=== PATIENT | female | born 2000 ===

== ENCOUNTER 2019-08-01 21:22 | Emergency (ER) | payer OTHER ==
[2019-08-01 21:38] VITALS: BP 129/73
--- NOTE | 2019-08-01 21:57 | ED ---
Laceration/Wound HPI - HPI Summary HPI Summary: 19 yo BF presents status post cutting her the pad over right middle finger with a broken spell while eating ice cream less than hr ago. Patient immediately place some arnica cream on and came to urgent care. There is no bleeding or discharge noted at this time, no sensorimotor deficits noted. - History of Current Complaint Stated Complaint: FINGER LAC Time Seen by Provider: 08/01/19 21:43 Hx Obtained From: Patient Hx Last Menstrual Period: 07/08/19 Onset/Duration: Sudden Onset Aggravating: Nothing Alleviating: Nothing Onset Severity: Mild Current Severity: Mild Pain Intensity: 2 - Allergy/Home Medications Allergies/Adverse Reactions: Allergies Allergy/AdvReac Type Severity Reaction Status Date / Time lactose Allergy GI Upset Verified 08/01/19 21:38 Home Medications: Home Medications Multivitamin [Once Daily] 1 each PO DAILY 08/01/19 [History Confirmed 08/01/19] PMH/Surg Hx/FS Hx/Imm Hx Previously Healthy: Yes Endocrine/Hematology History: Denies: Hx Diabetes Cardiovascular History: Denies: Hx Pacemaker/ICD History: Denies: Hx Renal Disease Sensory History: Denies: Hx Hearing Aid Psychiatric History: Denies: Hx Panic Disorder - Surgical History Surgery Procedure, Year, and Place: TONSILS Infectious Disease History: No Infectious Disease History: Denies: Traveled Outside the [place] in Last 30 Days - Social History Alcohol Use: None Substance Use Type: Reports: None Smoking Status (MU): Never Smoked Tobacco Review of Systems Constitutional: Negative Eyes: Negative ENT: Negative Cardiovascular: Negative Respiratory: Negative Gastrointestinal: Negative Musculoskeletal: Negative Skin: Other - right middle finger pad laceration Neurological/Mental Status: Negative All Other Systems Reviewed And Are Negative: Yes Physical Exam - Summary Physical Exam Summary: Vital Signs Reviewed: Yes Eye Exam: Normal Eyes: Positive: Conjunctiva Clear ENT: Positive: Normal ENT inspection Neck: Positive: Supple Respiratory: Positive: Lungs clear, Normal breath sounds. Negative: Crackles, Rhonchi, Stridor, Wheezing Cardiovascular Exam: Normal, RRR, S1, S2 Abdomen: NT/ND Musculoskeletal Exam: Neurological Exam: Normal Psychological Exam: Normal Skin Exam: closed 0.5cm V shaped superficial laceration in pad of right Distal phalanx, CSM and ROM intact Triage Information Reviewed: Yes Vital Signs On Initial Exam: Initial Vitals Temp Pulse Resp BP Pulse Ox 36.6 C 69 16 129/73 100 08/01/19 21:34 08/01/19 21:34 08/01/19 21:34 08/01/19 21:34 08/01/19 21:34 Vital Signs Reviewed: Yes Procedures - Laceration/Wound Repair 1 Location: upper extremity Description: Linear Betadine Prep?: No Laceration/Wound Explored: clean Closure: Skin Adhesive Debridement: minimal Layer Closure?: No Sterile Dressing Applied?: No Diagnostics - Vital Signs Vital Signs Temp Pulse Resp BP Pulse Ox 08/01/19 21:34 36.6 C 69 16 129/73 100 - Laboratory Lab Statement: Any lab studies that have been ordered have been reviewed, and results considered in the medical decision making process. Laceration Repair Course/Dx - Clinical Impression Provider Diagnoses: Finger laceration Discharge ED - Sign-Out/Discharge Documenting (check all that apply): Patient Departure All imaging exams completed and their final reports reviewed: No Studies - Discharge Plan Condition: Stable Disposition: HOME Patient Education Materials: Skin Adhesive Care (ED) Referrals: Emily Tobar NP [Primary Care Provider] - - Billing Disposition and Condition Condition: STABLE Disposition: Home
== END 2019-08-01 22:22 | disposition home or self-care (01) ==
LOC: UCEAST 21:22
DX: S61.212A Laceration without foreign body of right middle finger without damage to nail, initial encounter (principal); Z91.011 Allergy to milk products; W45.8XXA Other foreign body or object entering through skin, initial encounter; Y92.9 Unspecified place or not applicable
CPT/HCPCS: 12001; 99211; G0463